=== PATIENT | male | born 1985 | race Caucasian/White ===

== ENCOUNTER → 2017-11-11 | Outpatient (CLI) | payer OTHER ==
--- NOTE | 2017-11-11 20:14 | CONS ---
CONSULTATION REASON FOR CONSULTATION: For sleep apnea. 32-year-old male patient, [employer] officer, who is coming in for symptoms suggestive of obstructive sleep apnea. He snores loudly. He is very much tired and sleepy during the day. Baker score is at 20. He has been told to wake up gasping for air. He goes to bed around 10:30 p.m., wakes up 6:30-7 a.m. in the morning. Despite sleeping 7- 8 hours, he feels very much tired and sleepy. No sleep paralysis. No hallucinations. No cataplexy. He has gained around 10-15 pounds over the past 1 year. No other chronic medical problems or illnesses. He does not take any medication. No restlessness in lower extremities. No anxiety. No depression. PAST MEDICAL HISTORY: Negative. SURGICAL HISTORY: Negative. DRUG ALLERGIES: Not known. MEDICATIONS: None. SOCIAL HISTORY: Nonsmoker. No history of alcohol. No history of IV drugs. FAMILY HISTORY: Mother has obstructive sleep apnea. REVIEW OF SYSTEMS: 12-point review of system was done. Positive findings are mentioned above history of present illness. Otherwise negative. No sleepwalking. No sleep talking. No parasomnias. No palpitations. No night terrors. No anxiety. No claustrophobia. No depression. PHYSICAL EXAMINATION: BP is 140/74, pulse 89, respirations 16, temp 98.7, saturation 97% on room air. Neck size 16.5 inch. Weight is 219. Height 5 feet 10 inches, Baker score 20. BMI 30.9. GENERAL APPEARANCE: Calm, comfortable. Head is atraumatic, normocephalic. NECK: Supple. No JVD. No goiter or neck masses. Mallampati class IV. LUNGS: Clear to auscultation. HEART: Sounds regular rate and rhythm. Normal S1, S2. No S3, S4. No murmurs. ABDOMEN: Soft, nontender. No organomegaly. EXTREMITIES: No edema. No cyanosis or clubbing. NEUROLOGIC: Alert and oriented x3. No focal neurological deficits. PSYCHIATRIC: Negative for anxiety or depression. IMPRESSION: 1. Excessive hypersomnia with possible obstructive sleep apnea under investigation. 2. Hypersomnia, Baker score of 20. 3. Loud snoring. PLAN: Proceed with PSG and treat accordingly. MMODL / IJN: [id number] /
== END | disposition home or self-care (01) ==
LOC: SLEEP 16:06
PROVIDERS: ATTEND Internal Medicine Critical Care Medicine
DX: G47.10 Hypersomnia, unspecified (principal)
CPT/HCPCS: 99211

== ENCOUNTER → 2018-10-05 | Outpatient (CLI) | payer OTHER ==
--- NOTE | 2018-11-06 12:03 | EM ---
EVENT MONITOR AGE: 33 SEX: Male INDICATIONS: Patient was monitored between the October 05 and the October,. The rhythm strip revealed a sinus mechanism with episode of sinus tachycardia as well as sinus arrhythmia. There was no evidence of atrial fibrillation. One ventricular triplet, asymptomatic, was noted. Episodes of sinus bradycardia were noted during the night. No significant pauses were noted. No symptoms were reported. MMODL / IJN: [id number] /
== END | disposition home or self-care (01) ==
LOC: RADECHMAIN 11:47
PROVIDERS: ATTEND Family Medicine
DX: R00.0 Tachycardia, unspecified (principal)
CPT/HCPCS: 93270